=== PATIENT | male | born 1975 | race Hispanic/Latino ===

== ENCOUNTER 2019-05-10 11:04 | Emergency (ER) | payer SELFPAY ==
[2019-05-10 12:28] LABS: #Eosinphils 0.1 thou/uL (0.0-0.7); #Lymphocytes 1.8 thou/uL (1.20-3.40); #Monocytes 0.6 thou/uL (0.11-0.59); #Neutrophils 14.1 thou/uL (1.40-6.50); %Basophils 0.2 % (0.0-1.0); %Eosinophils 0.8 % (0.0-10.0); %Lymphocytes 10.8 % (21.0-51.0); %Monocytes 3.5 % (0.0-10.0); %Neutrophils 84.8 % (42.0-75.0); Hemoglobin 15.4 g/dL (14.0-18.0); Mean Corpuscular HGB CONC 32.5 g/dL (32.0-36.0); Mean Corpuscular Hemoglobin 26.9 pg (27.0-31.0); Mean Corpuscular Volume 82.8 fL (78.0-98.0); Mean Platelet Volume 8.6 fL (7.4-10.4); Platelet Count 222 thou/uL (130-400); Red Blood Cell (RBC) Count 5.71 mill/uL (4.70-6.10); White Blood Cell (WBC) Count 16.6 thou/uL (4.8-10.8)
[2019-05-10] MEDS ORDERED: ISOVUE-370 76%-LOCM 1 ML ONE (12:48)
[2019-05-10 12:50] LABS: ALT (SGPT) 46 U/L (8-55); AST (SGOT) 21 U/L (5-34); Albumin 4.1 g/dL (3.5-5.0); Alkaline Phosphatase 105 U/L (40-110); Anion Gap 11 mmol/L (10-20); BUN (Urea Nitrogen) 18 mg/dL (8.9-20.6); Bilirubin, Total 0.7 mg/dL (0.2-1.2); Calc. Creatinine Clearance 0 mL/min (70-130); Carbon Dioxide 24 mmol/L (22-29); Chloride 107 mmol/L (98-107); Estimated GFR-MDRD 51; Globulin 3.1 g/dL (2.4-3.5); Glucose 108 mg/dL (70-105); Potassium 3.9 mmol/L (3.5-5.1); Protein, Total 7.2 g/dL (6.0-8.3); Sodium 138 mmol/L (136-145)
[2019-05-10 13:01] LABS: Bilirubin Negative (Negative); Blood, Urine 2+ (Negative); Clarity Clear (Clear); Glucose, Urine (Dipstick) Normal (Negative); Leukocyte Negative Leu/uL (Negative); Nitrite Negative (Negative); Protein, Urine (Dipstick) 70 mg/dL (Neg-Trace); RBC/HPF Greater than 50 HPF (0-3); Squamous Epithelial 0-3 HPF (0-3)
[2019-05-10 13:02] LABS: Bacteria/HPF 1+ HPF (None Seen)
[2019-05-10] MEDS ORDERED: Ketorolac Tromethamine 30 MG/ML VIAL ONE (13:22)
[2019-05-10] MEDS ORDERED: Morphine 4 MG/ML VIAL ONE (13:22)
--- NOTE | 2019-05-10 13:28 | ULT ---
EXAM: US Testicular W Doppler PROVIDED CLINICAL HISTORY: Bilateral testicular pain. Patient states abdominal pain which radiates to both testicles. COMPARISON: None FINDINGS: The testicles demonstrate a normal sonographic appearance bilaterally without evidence of a testicula r mass. Single punctate echogenic focus is seen at the periphery of the right testicle which may represent a calcification in the tunica albuginea versus a tiny microlith within the testicle. The ri ght testicle measures 3.8 cm x 2.4 cm x 2.5 cm with the left testicle measured 3.4 cm x 2.5 cm x 2.2 cm. Doppler evaluation of each testicle with spectral analysis and color flow evaluation demonstrates art erial flow in each testicle. The right epididymis demonstrates a normal sonographic appearance. A large anechoic cystic structure is seen in the left epididymis measuring 1.6 cm in maximal dimensio ns most likely due to a prominent epididymal cyst. There is an echogenic focus with posterior shadowing seen within the scrotum inferiorly on the right suggestive of a scrotolith (scrotal jennifer). A very small right hydrocele is present. IMPRESSION: 1. Normal appearing bilateral testicles with arterial flow documented in each testicle. 2. Left epididymal cyst. 3. Minimal right hydrocele.
--- NOTE | 2019-05-10 14:21 | CT ---
CT ABDOMEN AND PELVIS WITH IV CONTRAST 05/10/2019 CLINICAL INFORMATION: Pulsating abdominal pain since one day ago. Worsening pain this morning. Patient states pain is radia ting to each testicle. COMPARISON: None. Technique: Multiple contiguous axial CT images are obtained through the abdomen and pelvis with IV contrast. Cor onal reformatted images are provided. FINDINGS: Lower Chest: Bibasilar atelectasis is present. Vessels: Abdominal aorta is normal in caliber without evidence of an aortic dissection. Abdomen: Portal vein:Patent Gallbladder: Within normal limits for CT imaging. Liver: within normal limits. Spleen: within normal limits. Pancreas: within normal limits. Adrenals: within normal limits. Kidneys: Right kidney demonstrates a normal sonographic appearance. There is a delayed nephrogram pha se of enhancement on the left with asymmetric left perinephric inflammatory stranding and fluid. There is minimal left hydronephrosis and prominence of the left ureter with a 4 mm x 2 mm calculus se en in the distal left ureter just proximal to the left UVJ. Bowel: Normal caliber. Appendix: The appendix is visualized and normal in caliber. Peritoneum: No ascites or free air; no fluid collection. Mesentery and Retroperitoneum: No enlarged mesenteric or retroperitoneal lymph nodes. Abdominal Wall: within normal limits. Pelvis: Reproductive Organs: No pelvic masses. Pelvis within normal limits. Bladder: Decompressed. Bones: within normal limits. IMPRESSION: 1. Partially obstructing distal left ureteral calculus measuring 4 mm with resultant minimal left hyd ronephrosis and hydroureter and perinephric stranding on the left.
== END 2019-05-10 15:00 | disposition home or self-care (01) ==
LOC: ERS 11:04
DX: N13.2 Hydronephrosis with renal and ureteral calculous obstruction (principal)
CPT/HCPCS: 36415; 74177; 76870; 80053; 81003; 81015; 85025; 93976; 96361; 96374; 96375; J1885; J2270; Q9966